=== PATIENT | male | born 1990 | race Caucasian/White ===

== ENCOUNTER 2017-05-28 11:00 | Emergency (ER) | payer OTHER ==
--- NOTE | 2017-05-28 11:49 | ED Physician Documentation ---
PD HPI HEENT - Stated complaint Stated Complaint: VOMITTING,NAUSEA,DIZZINESS - Chief complaint Chief Complaint: Abd Pain - History obtained from History obtained from: Patient - History of Present Illness Timing - onset: Yesterday Timing - duration: Days (05/21) Timing - details: Gradual onset, Still present Location: Other (onset of feeling dizziness with sitting up and moving head, better if holds still. Gradually worse and has increased to vomiting and marked vertigo with slight movement today. No hearing loss. No other neuro symptoms. Denies injury to head, no alcohol or other med use, no URI symptoms. Denies headache.) Associated symptoms: No: Fever, Swollen nodes, Facial swelling Similar symptoms before: Has not had sx before Recently seen: Not recently seen Review of Systems Constitutional: denies: Fever, Chills, Myalgias Eyes: denies: Loss of vision, Decreased vision, Photophobia Ears: denies: Loss of hearing, Ear pain, Tinnitus/ringing Nose: denies: Rhinorrhea / runny nose, Congestion, Sinus pressure / pain Throat: denies: Sore throat Respiratory: denies: Cough Skin: denies: Rash, Lesions Neurologic: denies: Focal weakness, Numbness, Difficulty speaking, Near syncope PD PAST MEDICAL HISTORY - Past Medical History Past Medical History: Yes Respiratory: Asthma - Past Surgical History Past Surgical History: No - Present Medications Home Medications: Ambulatory Orders Medication Instructions Recorded Confirmed Dexamethasone [Decadron] 4 mg PO DAILY #5 tablet 05/28/17 Meclizine [Antivert] 25 mg PO Q6H PRN #30 tablet 05/28/17 Ondansetron Odt [Zofran] 4 mg TL Q6H PRN #15 tablet 05/28/17 diazePAM [Diazepam] 5 mg PO TID PRN #20 tablet 05/28/17 - Allergies Allergies/Adverse Reactions: Allergies Allergy/AdvReac Type Severity Reaction Status Date / Time No Known Drug Allergies Allergy Verified 05/28/17 11:07 - Social History Does the pt smoke?: No Smoking Status: Never smoker - Immunizations Immunizations are current?: Yes PD ED PE NORMAL - Vitals Vital signs reviewed: Yes - General General: Alert and oriented X 3, Well developed/nourished, Other (appears uncomforable and is limiting head movement, holding it neurtral. 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, No motor deficit, No sensory deficit, Normal speech, Other Eye Opening: Spontaneous Motor: Obeys Commands Verbal: Oriented GCS Score: 15 Results - Vitals Vitals: Oxygen O2 Source Room air - Labs Labs: Laboratory Tests 05/28/17 05/28/17 12:54 12:54 ESR 1 Sodium 139 Potassium 4.2 Chloride 104 Carbon Dioxide 27 Anion Gap 8.0 BUN 17 Creatinine 1.0 Estimated GFR (MDRD) 90 Glucose 107 H Calcium 9.6 Total Bilirubin 0.9 AST 23 ALT 25 Alkaline Phosphatase 70 Total Protein 8.0 Albumin 4.8 Globulin 3.2 Albumin/Globulin Ratio 1.5 Lipase 18 L PD MEDICAL DECISION MAKING - ED course Complexity details: considered differential (vertigo with movement and better resting, with nystagmus and no other neuro symptoms - c/w peripheral vertigo. Given the persistence of it, presume viral/inflammatory (neuronitis or vestibulitis) rather than toxic/ traumatic or central. ), d/w patient Departure - Departure Disposition: 01 Home, Self Care Clinical Impression: Vertigo Nausea & vomiting Qualifiers: Vomiting type: unspecified Vomiting Intractability: non-intractable Qualified Code(s): R11.2 - Nausea with vomiting, unspecified Condition: Stable Record reviewed to determine appropriate education?: Yes Instructions: ED Vertigo Unspecified Follow-Up: [facility] [Provider Group] Prescriptions: Dexamethasone [Decadron] 4 mg PO DAILY #5 tablet diazePAM [Diazepam] 5 mg PO TID PRN #20 tablet PRN Reason: Spasms Meclizine [Antivert] 25 mg PO Q6H PRN #30 tablet PRN Reason: Vertigo Ondansetron Odt [Zofran] 4 mg TL Q6H PRN #15 tablet PRN Reason: Nausea / Vomiting Comments: Rest mainly in position of comfort. Slow motions and transitions. Use Decadron daily for the next 5 days for presumed inflammation of the inner ear. Ondansetron if needed for nausea itself. Meclizine 25 mg every 6-8 hours if needed for dizziness/vertigo. Add diazepam if needed for worse or persistent vertigo despite that. Recheck if not improved over the next couple of days. Forms: Activity restrictions Discharge Date/Time: 05/28/17 16:15
[2017-05-28] MEDS ORDERED: SODIUM CHLORIDE 0.9% 1,000 ML IV ONE (12:37)
[2017-05-28] MEDS ORDERED: MECLIZINE 12.5 MG TABLET PO STA (12:37)
[2017-05-28] MEDS ORDERED: ONDANSETRON 4 MG/2 ML VIAL IVP STA (12:37)
[2017-05-28] MEDS ORDERED: LORazepam 2 MG/ML VIAL IVP STA ×2 (12:37→14:32)
[2017-05-28] MEDS ORDERED: DEXAMETHASONE 10 MG/ML VIAL IVP STA (12:37)
[2017-05-28 13:13] LABS: ALBUMIN 4.8 g/dL (3.2-5.5); ALBUMIN/GLOBULIN RATIO 1.5 (1.0-2.2); BILIRUBIN,TOTAL 0.9 mg/dL (0.2-1.0); CALCIUM 9.6 mg/dL (8.5-10.3)
[2017-05-28 16:10] VITALS: BP 135/77
== END 2017-05-28 16:15 | disposition home or self-care (01) ==
LOC: ED 11:00
DX: R42 Dizziness and giddiness (principal); R11.2 Nausea with vomiting, unspecified
CPT/HCPCS: 36415; 80053; 83690; 85651; 96361; 96374; 96375; 96376; 99283; A9270; J2060